=== PATIENT | female | born 1945 | race Caucasian/White ===

== ENCOUNTER 2016-11-06 10:28 | Outpatient (CLI) | payer MEDICARE, OTHER | END 2016-11-06 23:59 | DX: I10 Essential (primary) hypertension (principal); E78.5 Hyperlipidemia, unspecified; M10.00 Idiopathic gout, unspecified site ==

== ENCOUNTER 2016-12-07 10:06 | Outpatient (CLI) | payer MEDICARE, OTHER | END 2016-12-07 10:07 | disposition home or self-care (01) | DX: M85.88 Other specified disorders of bone density and structure, other site (principal) ==

== ENCOUNTER 2016-12-07 10:09 | Outpatient (CLI) | payer MEDICARE, OTHER | END 2016-12-07 10:10 | disposition home or self-care (01) | DX: Z12.31 Encounter for screening mammogram for malignant neoplasm of breast (principal); R92.8 Other abnormal and inconclusive findings on diagnostic imaging of breast ==

== ENCOUNTER 2016-12-21 12:44 | Outpatient (CLI) | payer MEDICARE, OTHER ==
--- NOTE | 2016-12-25 14:52 | Mammography Report ---
REVISED: THIS REPORT WAS ORIGINALLY SIGNED ON 12/25/2016 @ 1810. NO CHANGES MADE TO REPORT. ORIGINAL [facility] REQUISITION WAS REPRINTED ON 01/07/2017. DIGITAL SCREENING MAMMOGRAM: 11/30/2016 CLINICAL HISTORY: A 71-year-old female who had a small right breast mass on recent screening mammogram dated 12/07/2016. The patient returns today for additional views of the right breast and right breast ultrasound. TECHNIQUE: Coned down compression, craniocaudal and oblique lateral views of the right breast were obtained with Hologic field digital mammography. FINDINGS: Additional views of the right breast confirms the presence of an 0.5 cm in diameter relatively well- circumscribed mass in the 12 o'clock position, 5 cm superior and posterior to the right nipple. This mass was not definitely present on patient's preceding mammograms from 07/31/2014 or 12/24/2015. Recommend a right breast ultrasound for further evaluation. RIGHT BREAST ULTRASOUND: FINDINGS: Right breast ultrasound demonstrates an 0.5 cm by 0.3 cm oval-shaped well-circumscribed, hypoechoic mass in the 12 o'clock position 5 cm superior and posterior to the right nipple. This mass has the appearance suggestive of a benign fibroadenoma. Options for further workup include six month followup right breast ultrasound versus an ultrasound-guided biopsy. In discussion with the patient, she probably will decide to proceed with an ultrasound-guided biopsy of her right breast. She would like a definitive answer in regard to this mass especially since it was not present on preceding mammograms. IMPRESSION: AN 0.5 CM BY 0.03 CM OVAL-SHAPED HYPOECHOIC WELL-CIRCUMSCRIBED MASS IS NOTED IN THE 12 O'CLOCK POSITION OF THE RIGHT BREAST. 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 OPTIONS FOR FURTHER WORKUP ARE DISCUSSED ABOVE. BIRADS CATEGORY 3-PROBABLY BENIGN FINDINGS. AT THE VERY LEAST, SHORT TERM FOLLOWUP IMAGING STUDY IS RECOMMENDED FOR FURTHER EVALUATION. THE PATIENT, HOWEVER, MAY CHOOSE OTHER OPTIONS FOR FURTHER WORKUP (ULTRASOUND-GUIDED BIOPSY) . STANDARD QUALIFYING STATEMENTS 1. This examination was reviewed with the aid of Computer-Aided Detection (CAD). 2. A negative or benign imaging report should not delay biopsy if clinically suspicious findings are present. Consider surgical consultation if warranted. More than 5% of cancers are not identified by imaging. 3. Dense breasts may obscure an underlying neoplasm. MTDD
== END 2016-12-21 12:45 | disposition home or self-care (01) ==
LOC: DI 12:44
PROVIDERS: ATTEND Family Medicine
DX: N63 Unspecified lump in breast (principal)
CPT/HCPCS: 76642; G0206

== ENCOUNTER 2017-01-11 12:30 | Outpatient (CLI) | payer MEDICARE, OTHER ==
--- NOTE | 2017-01-11 15:03 | Ultrasound Report ---
ULTRASOUND-GUIDED CORE NEEDLE BIOPSY RIGHT BREAST: 01/11/2017 CLINICAL INDICATION: A 5-mm nodule right upper breast. FINDINGS: Informed consent was obtained. Using standard aseptic technique, both 1% buffered lidocai ne and Sensorcaine were injected into the right breast for local anesthesia. A small feng was made i n the skin with a #11 blade. A 12-gauge Celero vacuum-assisted device was used to obtain three speci mens. A Celero marker was placed into the biopsy cavity under ultrasound guidance. The patient was taken t o a separate mammography machine, and a two-view digital mammogram was performed, documenting the mar ker in the expected location and no significant post-biopsy hematoma. The wound was dressed and ice applied. The patient was observed for approximately 15 minutes, then w as discharged from [facility] in good condition following instructions on wound care and obta ining biopsy results. The tissue was sent for histologic analysis. IMPRESSION: ULTRASOUND-GUIDED BIOPSY OF THE RIGHT BREAST. An addendum will be made to this report when pathology is reviewed to establish concordance. JOB #: [id number] EXT JOB #:[id number]
[2017-01-11] MEDS ORDERED: BUFFERED LIDOCAINE 10 ML SYRINGE IU ONE (15:20)
[2017-01-11] MEDS ORDERED: BUPIVACAINE 0.5%-EPI 1:200000 PF 30 ML VIAL SUBQ ONE (15:20)
[2017-01-11 15:32] VITALS: BP 181/93
--- NOTE | 2017-01-27 15:41 | Mammography Report ---
EXAM: [id number] US/BX ([id number]) ULTRASOUND-GUIDED CORE NEEDLE BIOPSY RIGHT BREAST: 01/11/2017 CLINICAL INDICATION: A 5-mm nodule right upper breast. FINDINGS: Informed consent was obtained. Using standard aseptic technique, both 1% buffered lidocaine and Sensorcaine were injected into the right breast for local anesthesia. A small feng was made in the skin with a #11 blade. A 12 -gauge Celero vacuum-assisted device was used to obtain three specimens. A Celero marker was placed into the biopsy cavity under ultrasound guidance. The patient was taken to a separate mammography machine, and a two-view digital mammogram was performed, documenting the marker in the expected location and no significant post-biopsy hematoma. The wound was dressed and ice applied. The patient was observed for approximately 15 minutes, then was discharged from [facility] in good condition following instructions on wound care and obtaining biopsy results. The tissue was sent for histologic analysis. IMPRESSION: ULTRASOUND-GUIDED BIOPSY OF THE RIGHT BREAST. An addendum will be made to this report when pathology is reviewed to establish concordance. JOB #: [id number] EXT JOB #: [id number] Reimbursement Rep: Reading Radiologist: Grady Cisse MD Releasing Radiologist: Grady Cisse MD Released Date Time: 01/11/17 1521 <Electronically signed by Grady Cisse MD> cc: Jaswinder Adame DO ADDENDUM ADDENDUM: Procedure performed by Dr. Cisse. Pathology reviewed by Dr. Cisse. Final pathology results are benign, demonstrating a fibroadenoma without atypia. These results are concordant with the imaging findings. RECOMMENDATION: Followup six month diagnostic mammogram. The patient has been scheduled to obtain results from Dr. Adame on 01/15/2017 at 1500 hours. Addendum Reimbursement Rep: YUAN Addendum Reading Radiologist: Grady Cisse MD Addendum Releasing Radiologist: Grady Cisse MD Addendum Released Date Time: 01/14/17 0809 MTDD
== END 2017-01-11 12:31 | disposition home or self-care (01) ==
LOC: DI 12:30
PROVIDERS: ATTEND Family Medicine
DX: D24.1 Benign neoplasm of right breast (principal)
CPT/HCPCS: 19083; G0206; 88305

== ENCOUNTER 2017-08-11 08:31 | Outpatient (CLI) | payer MEDICARE, OTHER ==
--- NOTE | 2017-08-11 14:29 | Mammography Report ---
DATE OF SERVICE: 08/11/2017 DIGITAL DIAGNOSTIC RIGHT MAMMOGRAM: 08/11/2017 CLINICAL INDICATION: Followup benign right breast biopsy. COMPARISON: 12/2016, 11/2016, 12/2015, 07/2014, 11/2012, 12/2011, 09/2010, 09/2009. TECHNIQUE: Right CC, MLO, true lateral, laterally exaggerated CC views. FINDINGS: The right breast again demonstrate scattered fibroglandular densities. A few punctate, typically benign calcifications are present. Biopsy marker and previously biopsied nodule in the right central breast are stable. No suspicious masses, clustered microcalcifications, or regions of architectural distortion are identified. IMPRESSION: BENIGN FINDINGS. RECOMMENDATION: ROUTINE ANNUAL SCREENING, NEXT DUE IN NOVEMBER OF 2017, UNLESS OTHERWISE CLINICALLY INDICATED. BIRADS CATEGORY 2-BENIGN FINDINGS. STANDARD QUALIFYING STATEMENTS: 1. This examination was reviewed with the aid of Computer-Aided Detection (CAD). 2. A negative or benign imaging report should not delay biopsy if clinically suspicious findings are present. Consider surgical consultation if warranted. More than 5% of cancers are not identified by imaging. 3. Dense breasts may obscure an underlying neoplasm. TD: 08/11/2017 15:28
== END 2017-08-11 08:32 | disposition home or self-care (01) ==
LOC: DI 08:31
PROVIDERS: ATTEND Family Medicine
DX: R92.8 Other abnormal and inconclusive findings on diagnostic imaging of breast (principal)

== ENCOUNTER 2017-09-16 10:38 | Outpatient (CLI) | payer MEDICARE, OTHER ==
--- NOTE | 2017-09-16 14:27 | XRAY Report ---
THREE VIEW RIGHT KNEE: 09/16/2017 CLINICAL INDICATION: Osteoarthritis, effusion. FINDINGS: AP, lateral, sunrise views of the right knee demonstrate moderate osteoarthritis, worst in the patellofemoral compartment. Moderate effusion is present. There is no evidence of fracture or dislocation. IMPRESSION: MODERATE RIGHT KNEE OSTEOARTHRITIS, WITH A MODERATE EFFUSION. TD: 09/16/2017 14:26
--- NOTE | 2017-09-16 14:30 | XRAY Report ---
TWO VIEW LEFT KNEE: 09/16/2017 CLINICAL INDICATION: Osteoarthritis. FINDINGS: Frontal and lateral views of the left knee demonstrate moderate osteoarthritis, worst in the lateral femorotibial compartment. There is no evidence of acute fracture. No effusion is seen. IMPRESSION: MODERATE LEFT OSTEOARTHRITIS. TD: 09/16/2017 14:30
== END 2017-09-16 10:39 | disposition home or self-care (01) ==
LOC: DI 10:38
PROVIDERS: ATTEND Physician Assistant Medical
DX: M17.0 Bilateral primary osteoarthritis of knee (principal); M25.461 Effusion, right knee

== ENCOUNTER 2017-11-26 07:54 | Outpatient (CLI) | payer MEDICARE, OTHER ==
[2017-11-26 13:21] LABS: BASOPHILS % (AUTO) 0.9 %; EOSINOPHILS # (AUTO) 0.4 10^3/uL (0.0-0.7); EOSINOPHILS % (AUTO) 7.2 %; HGB - HEMOGLOBIN 13.5 g/dL (12.0-16.0); LYMPHOCYTES # (AUTO) 1.3 10^3/uL (1.5-3.5); LYMPHOCYTES % (AUTO) 26.2 %; MEAN CORPUSCULAR HEMOGLOBIN 33.7 pg (27.0-31.0); MEAN CORPUSCULAR HGB CONC 34.8 g/dL (32.0-36.0); MEAN CORPUSCULAR VOLUME 96.7 fL (81.0-99.0); MEAN PLATELET VOLUME 7.6 fL (7.9-10.8); MONOCYTES # (AUTO) 0.5 10^3/uL (0.0-1.0); NEUTROPHILS # (AUTO) 2.9 10^3/uL (1.5-6.6); NEUTROPHILS % (AUTO) 56.7 %; PLT - PLATELET COUNT 298 10^3/uL (130-450); RED BLOOD COUNT 4.01 10^6/uL (4.20-5.40); RED CELL DISTRIBUTION WIDTH 12.5 % (12.0-15.0); WHITE BLOOD COUNT 5.1 x10^3/uL (4.8-10.8)
[2017-11-26 13:28] LABS: ALBUMIN 4.3 g/dL (3.2-5.5); ALBUMIN/GLOBULIN RATIO 1.6 (1.0-2.2); ALKALINE PHOSPHATASE 67 IU/L (42-121); ALT ALANINE AMINOTRANSFERASE 22 IU/L (10-60); AST ASPARTATE AMINOTRANSFERASE 34 IU/L (10-42); BILIRUBIN,TOTAL 0.6 mg/dL (0.2-1.0); BUN - BLOOD UREA NITROGEN 11 mg/dL (6-20); CALCIUM 9.1 mg/dL (8.5-10.3); CARBON DIOXIDE - CO2 27 mmol/L (21-32); CHLORIDE 94 mmol/L (101-111); CHOLESTEROL 213 mg/dL; CREATININE 0.5 mg/dL (0.4-1.0); GFR - MDRD 122 (>89); GLUCOSE 95 mg/dL (70-100); HDL CHOLESTEROL 70 mg/dL; LDL CHOLESTEROL,CALCULATED 127 mg/dL; LDL/HDL RATIO 1.8 (<4.4); SODIUM 129 mmol/L (135-145); VLDL CHOLESTEROL 16 mg/dL
== END 2017-11-26 07:55 | disposition home or self-care (01) ==
LOC: LAB.WCP 07:54
PROVIDERS: ATTEND Family Medicine
DX: E78.5 Hyperlipidemia, unspecified (principal); I10 Essential (primary) hypertension
CPT/HCPCS: 36415; 80053; 80061; 83721; 85025

== ENCOUNTER 2017-12-15 08:00 | Outpatient (CLI) | payer MEDICARE, OTHER ==
[2017-12-15 13:14] LABS: CALCIUM 9.4 mg/dL (8.5-10.3); CREATININE 0.6 mg/dL (0.4-1.0)
== END 2017-12-15 08:01 | disposition home or self-care (01) ==
LOC: LAB.WCP 08:00
PROVIDERS: ATTEND Family Medicine
DX: I10 Essential (primary) hypertension (principal)
CPT/HCPCS: 36415; 80048

== ENCOUNTER 2017-12-22 08:28 | Outpatient (CLI) | payer MEDICARE, OTHER ==
--- NOTE | 2017-12-23 13:56 | Mammography Report ---
DIGITAL SCREENING MAMMOGRAM: 12/22/2017 CLINICAL INDICATION: A 72-year-old with history of benign right breast biopsy for screening. COMPARISON: 11/2016, 12/2015, 07/2014, 11/2012, 12/2011, 09/2010, 09/2009. TECHNIQUE: Routine CC and MLO projections were obtained of the breasts. FINDINGS: The breasts again demonstrate scattered fibroglandular densities bilaterally. Biopsy marker in the right central breast is stable. Coarse and punctate, typically benign calcifications are present. No suspicious masses, clustered microcalcifications, or regions of architectural distortion are identified. IMPRESSION: BENIGN FINDINGS. RECOMMENDATION: Routine annual screening unless otherwise clinically indicated. BI-RADS CATEGORY 2 - BENIGN FINDINGS. STANDARD QUALIFYING STATEMENTS: 1. This examination was reviewed with the aid of Computer-Aided Detection (CAD). 2. A negative or benign imaging report should not delay biopsy if clinically suspicious findings are present. Consider surgical consultation if warranted. More than 5% of cancers are not identified by imaging. 3. Dense breasts may obscure an underlying neoplasm. TD: 12/23/2017 13:45
== END 2017-12-22 08:29 | disposition home or self-care (01) ==
LOC: DI.N 08:28
PROVIDERS: ATTEND Family Medicine
DX: Z12.31 Encounter for screening mammogram for malignant neoplasm of breast (principal)
CPT/HCPCS: 77067

== ENCOUNTER 2017-12-29 08:29 | Outpatient (CLI) | payer MEDICARE, OTHER ==
[2017-12-29 12:50] LABS: BASOPHILS # (AUTO) 0.1 10^3/uL (0.0-0.1); BASOPHILS % (AUTO) 2.2 %; EOSINOPHILS # (AUTO) 0.4 10^3/uL (0.0-0.7); HGB - HEMOGLOBIN 13.8 g/dL (12.0-16.0); LYMPHOCYTES # (AUTO) 1.6 10^3/uL (1.5-3.5); LYMPHOCYTES % (AUTO) 33.4 %; MEAN CORPUSCULAR HEMOGLOBIN 33.3 pg (27.0-31.0); MEAN CORPUSCULAR HGB CONC 34.3 g/dL (32.0-36.0); MEAN PLATELET VOLUME 7.9 fL (7.9-10.8); MONOCYTES # (AUTO) 0.4 10^3/uL (0.0-1.0); MONOCYTES % (AUTO) 7.4 %; NEUTROPHILS # (AUTO) 2.4 10^3/uL (1.5-6.6); PLT - PLATELET COUNT 272 10^3/uL (130-450); RED BLOOD COUNT 4.14 10^6/uL (4.20-5.40); RED CELL DISTRIBUTION WIDTH 12.5 % (12.0-15.0); WHITE BLOOD COUNT 4.9 x10^3/uL (4.8-10.8)
[2017-12-29 13:26] LABS: ALBUMIN 4.6 g/dL (3.2-5.5); ALBUMIN/GLOBULIN RATIO 1.8 (1.0-2.2); ALKALINE PHOSPHATASE 63 IU/L (42-121); ALT ALANINE AMINOTRANSFERASE 24 IU/L (10-60); AST ASPARTATE AMINOTRANSFERASE 34 IU/L (10-42); BILIRUBIN,TOTAL 0.8 mg/dL (0.2-1.0); BUN - BLOOD UREA NITROGEN 9 mg/dL (6-20); CALCIUM 9.1 mg/dL (8.5-10.3); CARBON DIOXIDE - CO2 26 mmol/L (21-32); CHLORIDE 100 mmol/L (101-111); CHOL/HDL RATIO 2.9 (<4.4); CHOLESTEROL 226 mg/dL; CREATININE 0.6 mg/dL (0.4-1.0); GFR - MDRD 99 (>89); GLUCOSE 90 mg/dL (70-100); HDL CHOLESTEROL 79 mg/dL; LDL CHOLESTEROL,CALCULATED 126 mg/dL; LDL/HDL RATIO 1.6 (<4.4); SODIUM 135 mmol/L (135-145); TOTAL PROTEIN 7.2 g/dL (6.7-8.2); URIC ACID 4.8 mg/dL (2.6-7.2); VLDL CHOLESTEROL 21 mg/dL
== END 2017-12-29 08:30 ==
LOC: LAB.WCP 08:29
PROVIDERS: ATTEND Family Medicine
DX: I10 Essential (primary) hypertension (principal); E78.5 Hyperlipidemia, unspecified; M10.00 Idiopathic gout, unspecified site
CPT/HCPCS: 36415; 80053; 80061; 83721; 84550; 85025

== ENCOUNTER 2019-02-14 14:41 | Outpatient (CLI) | payer MEDICARE, OTHER ==
--- NOTE | 2019-02-15 08:55 | Mammography Report ---
Reason: SCREENING MAMMO Procedure Date: 02/14/2019 Accession Number: [id number] / [id number] Procedure: PRANEETH - Screening Mammo w/Luis A CPT Code: FULL RESULT: EXAM: Screening Mammo w/Luis A DATE: 02/14/2019 3:14 PM CLINICAL HISTORY: Screening encounter. History of right breast core biopsy in 2017 with benign pathology. TECHNIQUE: (B) - Bilateral CC and MLO views were obtained. COMPARISON: 12/22/2017 through 07/31/2014. PARENCHYMAL PATTERN: (A) - The breast(s) demonstrate(s) scattered fibroglandular densities. FINDINGS: A biopsy clip is seen in the right breast. There are no suspicious masses, calcifications, or areas of distortion. IMPRESSION: Benign findings. BI-RADS category 2. RECOMMENDATION: (ANNUAL) - Recommend routine annual screening mammography. BI-RADS CATEGORY: (2) - Benign Findings. STANDARD QUALIFYING STATEMENTS: 1. This examination was not reviewed with the aid of Computer-Aided Detection (CAD). 2. A negative or benign imaging report should not preclude biopsy if clinically suspicious findings are present. 3. Dense breasts may obscure an underlying neoplasm. 4. This examination was reviewed with the aid of 3D breast imaging (tomosynthesis).
== END 2019-02-14 14:42 | disposition home or self-care (01) ==
LOC: DI 14:41
DX: Z12.31 Encounter for screening mammogram for malignant neoplasm of breast (principal)
CPT/HCPCS: 77063; 77067

== ENCOUNTER 2019-02-14 14:44 | Outpatient (CLI) | payer MEDICARE, OTHER ==
--- NOTE | 2019-02-15 10:20 | DEXA Report ---
Reason: BONE DISORDER Procedure Date: 02/14/2019 Accession Number: [id number] / [id number] Procedure: DEX - Dexa Spine and/or Hip CPT Code: FULL RESULT: EXAM: Dexa Spine and/or Hip DATE: 02/14/2019 3:31 PM CLINICAL HISTORY: BONE DISORDER TECHNIQUE: Dual energy x-ray absorptiometry (DXA) was performed on a [employer] System. Regions measured are the AP Spine, femoral neck, and if needed forearm. COMPARISON: 12/07/2016. In accordance with the International Society for Clinical Densitometry (ISCD) guidelines, data from previous exams may be reanalyzed using current recommendations and techniques. This is done to allow a more accurate basis for comparison with the current study. FINDINGS: The data for the lumbar spine is as follows: BMD (g/cm/cm) T-SCORE Z-SCORE REGION L1 1.311 1.5 2.9 L2 1.418 1.8 3.2 L3 1.432 1.9 3.3 L4 1.772 4.8 6.2 TOTAL 1.505 2.7 4.1 NOTE: All evaluable vertebrae are used for classification The data for the hip is as follows: BMD (g/cm/cm) T-SCORE Z-SCORE REGION Neck 0.748 -2.1 -0.5 TOTAL 0.864 -1.1 0.2 NOTE: The femoral neck or total proximal femur, whichever is lowest, is used for classification. DXA RESULTS SUMMARY: Spine SCAN DATE AGE BMD CHANGE VS CHANGE VS PREVIOUS PREVIOUS % 3/14/2019 [age] 1.505 -0.004 -0.3 12/07/2016 [age] 1[age]509 * Denotes significant change at the 95% confidence level. Denotes dissimilar scan types or analysis methods. DXA RESULTS SUMMARY: Hip SCAN DATE AGE BMD CHANGE VS CHANGE VS PREVIOUS PREVIOUS % [birth year][age][birth year]2019 [age] 0.864 -0.052* -5.7* 12[age]07/2016 [age] 0[age]916 * Denotes significant change at the 95% confidence level. Denotes dissimilar scan types or analysis methods. IMPRESSION: THE WHO CLASSIFICATION BASED ON THE INTERNATIONAL REFERENCE STANDARD IS OSTEOPENIA. THE FRACTURE RISK IS INCREASED. RECOMMENDATION: Patients with diagnosis of osteoporosis or osteopenia should have regular bone mineral density assessment. For those eligible for Medicare, routine testing is allowed once every 2 years. Testing frequency can be increased for patients who have rapidly progressing disease or for those who are receiving medical therapy to restore bone mass. COMMENT: World Health Organization (WHO) definitions for osteoporosis and osteopenia: NORMAL BMD: T-score at -1.0 or higher, fracture risk is low OSTEOPENIA BMD: T-score between -1.0 and -2.5, fracture risk is increased. OSTEOPOROSIS BMD: T-score at -2.5 or lower, fracture risk is high. National Osteoporosis Foundation recommends: 1. Obtain adequate dietary calcium (at least 1200 mg per day) and vitamin D (400-800 international units per day). 2. Participate, as appropriate, in regular weightbearing and muscle-strengthening exercise. 3. Avoid tobacco use and reduce alcohol and caffeine intake. 4. For more detailed information see the website at www.NOF.org.
== END 2019-02-14 14:45 | disposition home or self-care (01) ==
LOC: DI 14:44
PROVIDERS: ATTEND Family Medicine
DX: M85.89 Other specified disorders of bone density and structure, multiple sites (principal)
CPT/HCPCS: 77080

== ENCOUNTER 2019-03-10 08:00 | Outpatient (CLI) | payer MEDICARE, OTHER ==
[2019-03-10 11:57] LABS: BASOPHILS # (AUTO) 0.1 10^3/uL (0.0-0.1); BASOPHILS % (AUTO) 1.6 %; EOSINOPHILS # (AUTO) 0.3 10^3/uL (0.0-0.7); EOSINOPHILS % (AUTO) 4.7 %; HGB - HEMOGLOBIN 13.6 g/dL (12.0-16.0); LYMPHOCYTES # (AUTO) 2.2 10^3/uL (1.5-3.5); LYMPHOCYTES % (AUTO) 39.1 %; MEAN CORPUSCULAR HEMOGLOBIN 32.5 pg (27.0-31.0); MEAN CORPUSCULAR HGB CONC 32.2 g/dL (32.0-36.0); MEAN CORPUSCULAR VOLUME 101.2 fL (81.0-99.0); MEAN PLATELET VOLUME 9.5 fL (7.9-10.8); MONOCYTES # (AUTO) 0.4 10^3/uL (0.0-1.0); MONOCYTES % (AUTO) 6.7 %; NEUTROPHILS # (AUTO) 2.7 10^3/uL (1.5-6.6); NEUTROPHILS % (AUTO) 47.5 %; PLT - PLATELET COUNT 287 10^3/uL (130-450); RED BLOOD COUNT 4.18 10^6/uL (4.20-5.40); RED CELL DISTRIBUTION WIDTH 12.8 % (12.0-15.0); WHITE BLOOD COUNT 5.7 x10^3/uL (4.8-10.8)
[2019-03-10 12:26] LABS: ALBUMIN 4.6 g/dL (3.2-5.5); ALBUMIN/GLOBULIN RATIO 1.6 (1.0-2.2); ALKALINE PHOSPHATASE 62 IU/L (42-121); ALT ALANINE AMINOTRANSFERASE 24 IU/L (10-60); AST ASPARTATE AMINOTRANSFERASE 31 IU/L (10-42); BILIRUBIN,TOTAL 0.8 mg/dL (0.2-1.0); BUN - BLOOD UREA NITROGEN 10 mg/dL (6-20); CALCIUM 9.5 mg/dL (8.5-10.3); CARBON DIOXIDE - CO2 26 mmol/L (21-32); CHLORIDE 99 mmol/L (101-111); CHOL/HDL RATIO 2.6 (<4.4); CHOLESTEROL 239 mg/dL; CREATININE 0.5 mg/dL (0.4-1.0); GFR - MDRD 121 (>89); GLUCOSE 86 mg/dL (70-100); HDL CHOLESTEROL 93 mg/dL; LDL CHOLESTEROL,CALCULATED 125 mg/dL; LDL/HDL RATIO 1.3 (<4.4); SODIUM 138 mmol/L (135-145); TOTAL PROTEIN 7.4 g/dL (6.7-8.2); VLDL CHOLESTEROL 21 mg/dL
== END 2019-03-10 23:59 | disposition home or self-care (01) ==
LOC: LAB.WCP 08:00
PROVIDERS: ATTEND Family Medicine
DX: I10 Essential (primary) hypertension (principal); E78.5 Hyperlipidemia, unspecified; F41.9 Anxiety disorder, unspecified
CPT/HCPCS: 36415; 80053; 80061; 83721; 84443; 85025

== ENCOUNTER 2020-06-19 10:00 | Outpatient (CLI) | payer MEDICARE, OTHER ==
--- NOTE | 2020-06-26 14:04 | Ultrasound Report ---
LIMITED ULTRASOUND OF LEFT BREAST: 06/19/2020 CLINICAL: Inverted left nipple. Comparison is made to exams dated: 06/19/2020 mammogram, 02/14/2019 mammogram, 12/22/2017 mammogram, mammogram, 01/11/2017 mammogram, and 01/11/2017 ultrasound biopsy - [facility]. Ultrasound of the left breast retroareolar was performed. Normal breast tissue is seen without evide nce of solid or cystic mass. IMPRESSION: PROBABLY BENIGN There is no mammographic or sonographic evidence of malignancy. Given new nipple inversion, recommen d clinical followup and US and Mammogram in 6 months. A follow-up mammogram and an ultrasound in 6 months is recommended to demonstrate stability. This exam was interpreted at Station ID: [id number]. Electronically Signed By: River Hikcs acr/:06/25/2020 15:57:54 Ultrasound BI-RADS: 3 Probably benign BI-RADS CATEGORY: (3) - 3 Mammo and US [id number] 6 month follow-up LATERALITY: (B)
--- NOTE | 2020-06-26 14:04 | Mammography Report ---
BILATERAL DIGITAL DIAGNOSTIC MAMMOGRAM 3D/2D: 06/19/2020 CLINICAL: Inverted left nipple. Comparison is made to exams dated: 02/14/2019 mammogram, 12/22/2017 mammogram, 08/11/2017 mammogram, 07/2017 mammogram, and 01/11/2017 ultrasound biopsy - [facility]. There are scatter ed fibroglandular elements in both breasts. No significant masses, calcifications, or other findings are seen in either breast. IMPRESSION: INCOMPLETE: NEEDS ADDITIONAL IMAGING EVALUATION No mammographic evidence of malignancy. Given history of inverted nipple recommend left breast US. BI-RADS 0. This exam was interpreted at Station ID: [id number]. NOTE: For mammograms, a report in lay terms will be sent to the patient. Approximately 15% of breast malignancies will not be visualized mammographically. In the management of a palpable breast mass, a negative mammogram must not discourage biopsy of a clinically suspicious lesion. Electronically Signed By: River Hicks acr/:06/25/2020 15:55:53 ACR BI-RADS Category 0: Incomplete 3340F PARENCHYMAL PATTERN: (A) - The breast(s) demonstrate(s) scattered fibroglandular densities. BI-RADS CATEGORY: (0) - 0 Ultrasound [id number] Immediate follow-up LATERALITY: (B)
== END 2020-06-19 10:01 | disposition home or self-care (01) ==
LOC: DI 10:00
PROVIDERS: ATTEND Family Medicine
DX: N64.59 Other signs and symptoms in breast (principal)
CPT/HCPCS: 76642; 77066

== ENCOUNTER 2020-10-04 11:12 | Outpatient (CLI) | payer MEDICARE, OTHER ==
[2020-10-04 12:02] VITALS: BP 155/96
--- NOTE | 2020-10-04 12:02 | SLEEP CARE CONSULTATION ---
Information from patient questionnaire entered by Veronika Melo. I have reviewed and concur with the information entered by Veronika Melo. This document represents the service I personally performed and the decisions made by me, Irina Arreguin ARNP. History of Present Illness Service Date and Time: 10/04/2020 1112 Reason for Visit: New patient Chief Complaint: reports: Fatigue (began after 01/07/20 when hospitalized for high blood pressure). denies: Unrefreshed sleep, Snoring, Observed pauses in breathing, Frequent awakenings at night Usual bedtime: 10:30-11 pm Time it takes to fall asleep: 15 minutes Snores at night: No Observed to quit breathing while asleep: No Sleeps alone due to snoring: No Number of times waking at night: 1 Reasons for waking at night: reports: Bathroom. denies: Choking, Snoring, Gasping for air Toss, Turn, or Twitch while sleeping: No Recalls having dreams: Yes Usually gets out of bed at: 6-7 am Feels refreshed in the morning: Yes Morning headache: No Sleepy or fatigued during the day: No Ever fallen asleep while driving: No Takes day naps: No Dreams during day naps: No Prior sleep studies: No Additional HPI information: I had the pleasure of seeing HERNAN HOLGUIN today regarding the possibility of her having a sleep disorder. Her current complaints include fatigue. She was hospitalized on 04/08/20 overnight for high blood pressure and found to have a rapid heart rate. She was originally started on 10 mg Amlodipine. She was feeling very tired and they stopped the Amlodipine. She was placed on Toprol 25 mg for her blood pressure. She followed up with Dr. Adame and discussed that she was having extreme fatigue issues and she was referred for a sleep evaluation. She followed up again with some rising blood pressure and was placed on Amlodipine 5 mg by the horticulture worker. Since these changes, she has been feeling fine and she has been checking her blood pressure at home and it has been 120s/60-70s. She does not snore or have any pauses in breathing. She does not gasp or choke in her sleep or have morning headaches. She usually wakes up feeling rested. She states the fatigue has since resolved. She is feeling like her old self and able to do her normal activities without fatigue or daytime sleepiness. - Parasomnia Symptoms Ever been unable to move upon waking from sleep: No Walks in sleep: No Talks in sleep: No Ever acted out dreams in sleep: No Ever felt weak in the knees when startled or emotional: No Bothered by creepy, crawly, restless sensations in legs: No Problems with memory or concentration: No Subjective Initial [place] Sleepiness Scale score: 2 (in 2020) Past Medical History Past Medical History: reports: Hypertension, Arthritis, Other (high cholesterol (200)) Social History The patient's occupation is a Retired. Patient is and lives in [place]. Have you smoked in the past 12 months: No Alcohol use: Yes Alcohol amount and frequency: 1-2 drinks daily Caffeine use: Yes Caffeine amount and frequency: 1 cup daily Family History Family history of sleep disordered breathing: No Allergies and Home Medications Drug allergies reviewed: Yes (codiene) Home medication list reviewed: Yes Allergy and home medication list: Toprol 25 mg Amlodipine 5 mg Lisinopril 40 mg Rosuvastatin 10 mg Lantanoprost eye drops Metronidazole cream 0.75% Centrum Silver Ubiquinol D3 25 mcg Aspirin 81 mg once a week Metamucil 2 tabs Cranberry gel tab daily Review of Systems Weight loss over past 5 years: 20 Cardiovascular: reports: high blood pressure Gastrointestinal: denies: heartburn Neurological: denies: headaches Psychiatric: reports: anxiety (lets things bother her). denies: depression Ear/Nose/Throat: reports: tonsillectomy, wisdom teeth removed (1). denies: nasal congestion Musculoskeletal: reports: joint pain Immunologic: denies: allergies to food or environment Physical Exam Blood Pressure: 155/96 (has white coat) Cuff size: regular Heart Rate: 80 O2 Saturation: 98 Height: 5 ft 9 in Weight: 161 lb Body Mass Index: 23.8 BMI Classification: Healthy weight Neck circumference: 14.3 (inches) Nostrils: patent to airflow Mouth and throat: narrow oropharynx Soft palate: long Hard palate: normal Uvula: normal Uvula visualization: 25% Mallampati Class III Tongue: enlarged in size with teeth enriquez on lateral edges Tonsils: absent bilaterally Chin and jaw: normal size and position Neck: normal w/o lymphadenopathy or thyromegaly Heart: regular rate and rhythm Lungs: clear bilaterally Impression and Plan 1. Fatigue, unspecified. She states her fatigue has resolved. She does not have loud and frequent snoring, observed pauses in breathing, unrefreshed sleep or excessive daytime sleepiness. She does have hypertension that is being well controlled by medications. Although, due to her white coat syndrome, her blood pressure was elevated today. I discussed with patient she does not have a typical presentation for sleep disordered breathing and risk factors are low. She is at a healthy weight. Patient voiced that she does not think her fatigue that developed solely after starting a large dose of Amlodipine and resolved with Toprol and lower dose of Amlodipine. I offered to send for authorization to see if we can do a study with her current symptoms but patient declined at this time. I feel her risks are low and agree at this time. I advised her to obtain referral to return if her symptoms reoccur or worsen. She voiced understanding. * Maintain a healthy weight * Avoid alcohol consumption near bedtime * Return as needed. Counseling Topics: Weight loss health impact Visit Type: In Office Time Spent with Patient (minutes): 30 Provider Statement: I spent 100% of the Face to Face Visit with the patient with greater than 50% spent counseling the patient and coordination of care.
== END 2020-10-04 11:13 | disposition home or self-care (01) ==
LOC: SC 11:12
PROVIDERS: ATTEND Nurse Practitioner Family
DX: R53.83 Other fatigue (principal); I10 Essential (primary) hypertension
CPT/HCPCS: 99203; G0463; 99212

== ENCOUNTER 2020-10-15 08:00 | Outpatient (CLI) | payer MEDICARE, OTHER ==
[2020-10-15 12:13] LABS: ALBUMIN 4.8 g/dL (3.2-5.5); ALBUMIN/GLOBULIN RATIO 1.8 (1.0-2.2); BILIRUBIN,TOTAL 0.6 mg/dL (0.2-1.0); CALCIUM 9.6 mg/dL (8.5-10.3); CREATININE 0.7 mg/dL (0.4-1.0); TOTAL PROTEIN 7.4 g/dL (6.7-8.2)
[2020-10-15 12:14] LABS: BASOPHILS # (AUTO) 0.1 10^3/uL (0.0-0.1); BASOPHILS % (AUTO) 1.6 %; EOSINOPHILS # (AUTO) 0.4 10^3/uL (0.0-0.7); EOSINOPHILS % (AUTO) 6.7 %; HGB - HEMOGLOBIN 14.4 g/dL (12.0-16.0); LYMPHOCYTES # (AUTO) 2.4 10^3/uL (1.5-3.5); LYMPHOCYTES % (AUTO) 37.6 %; MEAN CORPUSCULAR HEMOGLOBIN 33.1 pg (27.0-31.0); MEAN CORPUSCULAR HGB CONC 32.7 g/dL (32.0-36.0); MEAN CORPUSCULAR VOLUME 101.1 fL (81.0-99.0); MEAN PLATELET VOLUME 9.8 fL (7.9-10.8); MONOCYTES # (AUTO) 0.4 10^3/uL (0.0-1.0); MONOCYTES % (AUTO) 6.2 %; NEUTROPHILS % (AUTO) 47.6 %; PLT - PLATELET COUNT 311 10^3/uL (130-450); RED BLOOD COUNT 4.35 10^6/uL (4.20-5.40); RED CELL DISTRIBUTION WIDTH 12.4 % (12.0-15.0); WHITE BLOOD COUNT 6.3 x10^3/uL (4.8-10.8)
[2020-10-15 12:27] LABS: THYROID STIMULATING HORMONE 2.71 uIU/mL (0.34-5.60)
[2020-10-15 12:38] LABS: CHOL/HDL RATIO 2.3 (<4.4); CHOLESTEROL 214 mg/dL; HDL CHOLESTEROL 93 mg/dL; LDL CHOLESTEROL,CALCULATED 99 mg/dL; LDL/HDL RATIO 1.1 (<4.4); TRIGLYCERIDES 111 mg/dL; VLDL CHOLESTEROL 22 mg/dL
== END 2020-10-15 23:59 | disposition home or self-care (01) ==
LOC: LAB.WCP 08:00
PROVIDERS: ATTEND Family Medicine
DX: I10 Essential (primary) hypertension (principal); R53.83 Other fatigue; E78.5 Hyperlipidemia, unspecified
CPT/HCPCS: 36415; 80053; 80061; 83721; 84443; 85025

== ENCOUNTER 2020-12-17 08:00 | Outpatient (CLI) | payer MEDICARE, OTHER ==
[2020-12-17 17:41] LABS: BASOPHILS # (AUTO) 0.1 10^3/uL (0.0-0.1); BASOPHILS % (AUTO) 0.5 %; EOSINOPHILS % (AUTO) 0.3 %; HGB - HEMOGLOBIN 13.7 g/dL (12.0-16.0); LYMPHOCYTES # (AUTO) 0.9 10^3/uL (1.5-3.5); LYMPHOCYTES % (AUTO) 6.3 %; MEAN CORPUSCULAR HEMOGLOBIN 33.9 pg (27.0-31.0); MEAN CORPUSCULAR HGB CONC 33.4 g/dL (32.0-36.0); MEAN CORPUSCULAR VOLUME 101.5 fL (81.0-99.0); MEAN PLATELET VOLUME 9.6 fL (7.9-10.8); MONOCYTES # (AUTO) 1.1 10^3/uL (0.0-1.0); MONOCYTES % (AUTO) 7.9 %; NEUTROPHILS # (AUTO) 11.5 10^3/uL (1.5-6.6); NEUTROPHILS % (AUTO) 84.4 %; PLT - PLATELET COUNT 287 10^3/uL (130-450); RED BLOOD COUNT 4.04 10^6/uL (4.20-5.40); RED CELL DISTRIBUTION WIDTH 12.9 % (12.0-15.0); WHITE BLOOD COUNT 13.6 x10^3/uL (4.8-10.8)
[2020-12-17 18:02] LABS: ALBUMIN 4.7 g/dL (3.2-5.5); BILIRUBIN,TOTAL 1.1 mg/dL (0.2-1.0); CALCIUM 9.6 mg/dL (8.5-10.3); CREATININE 0.6 mg/dL (0.4-1.0); POTASSIUM 4.4 mmol/L (3.5-5.0); TOTAL PROTEIN 7.1 g/dL (6.7-8.2)
== END 2020-12-17 23:59 | disposition home or self-care (01) ==
LOC: LAB.N 08:00
PROVIDERS: ATTEND Physician Assistant Medical
DX: R10.9 Unspecified abdominal pain (principal)
CPT/HCPCS: 36415; 80053; 83690; 85025

== ENCOUNTER 2021-01-20 11:17 | Outpatient (CLI) | payer MEDICARE, OTHER ==
--- NOTE | 2021-01-21 14:25 | Mammography Report ---
UNILATERAL LEFT DIGITAL DIAGNOSTIC MAMMOGRAM 3D/2D: 01/20/2021 CLINICAL: Patient returns for a 6 month follow up of the left breast. Comparison is made to exams dated: 06/19/2020 ultrasound, 06/19/2020 mammogram, 02/14/2019 mammogram, 12/22/2017 mammogram, 08/11/2017 mammogram, and 01/11/2017 mammogram - [facility]. T here are scattered fibroglandular elements in left breast. No significant masses, calcifications, or other findings are seen in the breast. IMPRESSION: INCOMPLETE: NEEDS ADDITIONAL IMAGING EVALUATION There is no abnormality seen in the left breast to correspond with the nipple abnormality in the sub- areolar depth, however, ultrasound is recommended. Ultrasound will be performed immediately following the current exam. This exam was interpreted at Station ID: [id number]. NOTE: For mammograms, a report in lay terms will be sent to the patient. Approximately 15% of breast malignancies will not be visualized mammographically. In the management of a palpable breast mass, a negative mammogram must not discourage biopsy of a clinically suspicious lesion. Electronically Signed By: Luis Brooks M.D. ddp/:01/20/2021 12:48:32 ACR BI-RADS Category 0: Incomplete 3340F PARENCHYMAL PATTERN: (A) - The breast(s) demonstrate(s) scattered fibroglandular densities. BI-RADS CATEGORY: (0) - 0 Ultrasound [id number] Immediate follow-up LATERALITY: (B)
--- NOTE | 2021-01-21 14:25 | Ultrasound Report ---
LIMITED ULTRASOUND OF LEFT BREAST: 01/20/2021 CLINICAL: Patient returns today to evaluate a focal asymmetry in the left breast. Comparison is made to exams dated: 01/20/2021 mammogram, 06/19/2020 ultrasound, 06/19/2020 mammogram, 02/14/2019 mammogram, 12/22/2017 mammogram, and 08/11/2017 mammogram - [facility]. Color flow ultrasound of the left breast retroareolar was performed on the areas of interest. Jo scale images of the real-time examination were reviewed. No discrete cystic or solid mass lesion identified in the retroareolar region. IMPRESSION: NEGATIVE There is no sonographic evidence of malignancy. There is no abnormality seen in the left breast to correspond with the nipple inversion in the sub-ar eolar depth, however, clinical followup is recommended. Return to annual mammogram screening schedule is recommended. This exam was interpreted at Station ID: [id number]. Electronically Signed By: Luis Brooks M.D. ddp/:01/20/2021 12:50:55 Ultrasound BI-RADS: 1 Negative BI-RADS CATEGORY: (1) - 1 RECOMMENDATION: (ANNUAL) - Recommend routine annual screening mammography. [id number] return to screening LATERALITY: (B)
== END 2021-01-20 11:18 | disposition home or self-care (01) ==
LOC: DI 11:17
PROVIDERS: ATTEND Family Medicine
DX: R92.8 Other abnormal and inconclusive findings on diagnostic imaging of breast (principal)

== ENCOUNTER 2021-08-27 07:31 | Outpatient (CLI) | payer MEDICARE, OTHER ==
[2021-08-27 11:59] LABS: BASOPHILS # (AUTO) 0.1 10^3/uL (0.0-0.1); BASOPHILS % (AUTO) 2.2 %; EOSINOPHILS # (AUTO) 0.4 10^3/uL (0.0-0.7); EOSINOPHILS % (AUTO) 7.1 %; HCT - HEMATOCRIT 42.6 % (37.0-47.0); HGB - HEMOGLOBIN 14.3 g/dL (12.0-16.0); LYMPHOCYTES # (AUTO) 1.5 10^3/uL (1.5-3.5); LYMPHOCYTES % (AUTO) 29.7 %; MEAN CORPUSCULAR HEMOGLOBIN 33.9 pg (27.0-31.0); MEAN CORPUSCULAR HGB CONC 33.6 g/dL (32.0-36.0); MEAN CORPUSCULAR VOLUME 100.9 fL (81.0-99.0); MEAN PLATELET VOLUME 9.7 fL (7.9-10.8); MONOCYTES # (AUTO) 0.4 10^3/uL (0.0-1.0); MONOCYTES % (AUTO) 7.5 %; NEUTROPHILS # (AUTO) 2.7 10^3/uL (1.5-6.6); NEUTROPHILS % (AUTO) 53.3 %; PLT - PLATELET COUNT 244 10^3/uL (130-450); RED BLOOD COUNT 4.22 10^6/uL (4.20-5.40); RED CELL DISTRIBUTION WIDTH 12.5 % (12.0-15.0); WHITE BLOOD COUNT 5.1 x10^3/uL (4.8-10.8)
[2021-08-27 12:13] LABS: ALBUMIN 4.6 g/dL (3.2-5.5); ALBUMIN/GLOBULIN RATIO 1.9 (1.0-2.2); ALKALINE PHOSPHATASE 69 IU/L (42-121); ALT ALANINE AMINOTRANSFERASE 86 IU/L (10-60); AST ASPARTATE AMINOTRANSFERASE 128 IU/L (10-42); BILIRUBIN,TOTAL 0.9 mg/dL (0.2-1.0); BUN - BLOOD UREA NITROGEN 12 mg/dL (6-20); CARBON DIOXIDE - CO2 26 mmol/L (21-32); CHLORIDE 97 mmol/L (101-111); CHOL/HDL RATIO 2.1 (<4.4); CHOLESTEROL 221 mg/dL; CREATININE 0.5 mg/dL (0.4-1.0); GFR - MDRD 120 (>89); GLUCOSE 109 mg/dL (70-100); HDL CHOLESTEROL 105 mg/dL; LDL CHOLESTEROL,CALCULATED 103 mg/dL; POTASSIUM 4.3 mmol/L (3.5-5.0); SODIUM 133 mmol/L (135-145); TRIGLYCERIDES 64 mg/dL; URIC ACID 4.4 mg/dL (2.6-7.2); VLDL CHOLESTEROL 13 mg/dL
== END 2021-08-27 07:32 | disposition home or self-care (01) ==
LOC: LAB.N 07:31
PROVIDERS: ATTEND Family Medicine
DX: I16.0 Hypertensive urgency (principal); E78.5 Hyperlipidemia, unspecified; M10.9 Gout, unspecified
CPT/HCPCS: 36415; 80053; 80061; 83721; 84550; 85025

== ENCOUNTER 2021-09-18 08:00 | Outpatient (CLI) | payer MEDICARE, OTHER ==
[2021-09-18 18:08] LABS: FECAL OCCULT BLOOD (FIT) POSITIVE (NEGATIVE)
== END 2021-09-18 23:59 | disposition home or self-care (01) ==
LOC: LAB.N 08:00
PROVIDERS: ATTEND Family Medicine
DX: Z12.11 Encounter for screening for malignant neoplasm of colon (principal)
CPT/HCPCS: 82274

== ENCOUNTER 2021-09-22 09:39 | Outpatient (CLI) | payer MEDICARE, OTHER ==
--- NOTE | 2021-09-22 10:22 | DEXA Report ---
PROCEDURE: Dexa Spine and/or Hip INDICATIONS: BONE DISORDER TECHNIQUE: Dual energy x-ray absorptiometry (DXA) was performed on a Fonemesh System. Regions measur ed are the AP Spine, femoral neck, and if needed forearm. COMPARISON: Prior studies dating back to December 07, 2016 FINDINGS: Lumbar Spine: Bone Mineral Density 1.368 g/cm/cm,T score 1.6, normal Left Femoral Neck: Bone Mineral Density 0.736 g/cm/cm, T score -2.2, osteopenia Total: Bone Mineral Density 0.772 g/cm/cm, T score -1.9, osteopenia. (T score greater or equal to -1.0: NORMAL) (T score from -1.1 to -2.4: OSTEOPENIA) (T score less than or equal to -2.5 to: OSTEOPOROSIS) Impression: Bone mineral density as detailed above. Patients with diagnosis of osteoporosis or osteopenia should have regular bone mineral density assess ment. For those eligible for Medicare, routine testing is allowed once every 2 years. Testing frequ ency can be increased for patients who have rapidly progressing disease or for those who are receivin g medical therapy to restore bone mass. Reviewed by: Sid Hansen MD on 09/22/2021 10:21 AM PST Approved by: Sid Hansen MD on 09/22/2021 10:21 AM PST Station ID: [id number]
== END 2021-09-22 09:40 | disposition home or self-care (01) ==
LOC: DI 09:39
PROVIDERS: ATTEND Family Medicine
DX: M85.89 Other specified disorders of bone density and structure, multiple sites (principal)

== ENCOUNTER 2021-12-11 07:24 | Outpatient (CLI) | payer MEDICARE, OTHER ==
[2021-12-11 12:13] LABS: BASOPHILS # (AUTO) 0.1 10^3/uL (0.0-0.1); BASOPHILS % (AUTO) 2.4 %; EOSINOPHILS # (AUTO) 0.4 10^3/uL (0.0-0.7); EOSINOPHILS % (AUTO) 7.1 %; HCT - HEMATOCRIT 41.4 % (37.0-47.0); HGB - HEMOGLOBIN 13.8 g/dL (12.0-16.0); LYMPHOCYTES # (AUTO) 1.7 10^3/uL (1.5-3.5); LYMPHOCYTES % (AUTO) 32.7 %; MEAN CORPUSCULAR HEMOGLOBIN 33.3 pg (27.0-31.0); MEAN CORPUSCULAR HGB CONC 33.3 g/dL (32.0-36.0); MEAN PLATELET VOLUME 9.6 fL (7.9-10.8); MONOCYTES # (AUTO) 0.5 10^3/uL (0.0-1.0); NEUTROPHILS # (AUTO) 2.4 10^3/uL (1.5-6.6); NEUTROPHILS % (AUTO) 47.6 %; PLT - PLATELET COUNT 278 10^3/uL (130-450); RED BLOOD COUNT 4.14 10^6/uL (4.20-5.40); RED CELL DISTRIBUTION WIDTH 12.4 % (12.0-15.0); WHITE BLOOD COUNT 5.1 x10^3/uL (4.8-10.8)
[2021-12-11 12:33] LABS: ALBUMIN 4.5 g/dL (3.2-5.5); ALBUMIN/GLOBULIN RATIO 1.8 (1.0-2.2); ALKALINE PHOSPHATASE 58 IU/L (42-121); ALT ALANINE AMINOTRANSFERASE 42 IU/L (10-60); AST ASPARTATE AMINOTRANSFERASE 65 IU/L (10-42); BILIRUBIN,TOTAL 0.8 mg/dL (0.2-1.0); BUN - BLOOD UREA NITROGEN 9 mg/dL (6-20); CALCIUM 9.5 mg/dL (8.5-10.3); CARBON DIOXIDE - CO2 27 mmol/L (21-32); CHLORIDE 100 mmol/L (101-111); CHOL/HDL RATIO 2.2 (<4.4); CHOLESTEROL 226 mg/dL; CREATININE 0.6 mg/dL (0.4-1.0); GAMMA GLUTAMYL TRANSPEPTIDASE 25 IU/L (8-38); GFR - MDRD 97 (>89); GLUCOSE 108 mg/dL (70-100); HDL CHOLESTEROL 104 mg/dL; LDL CHOLESTEROL,CALCULATED 110 mg/dL; LDL/HDL RATIO 1.1 (<4.4); SODIUM 135 mmol/L (135-145); TRIGLYCERIDES 59 mg/dL; VLDL CHOLESTEROL 12 mg/dL
== END 2021-12-11 07:25 | disposition home or self-care (01) ==
LOC: LAB.N 07:24
PROVIDERS: ATTEND Family Medicine
DX: E78.5 Hyperlipidemia, unspecified (principal); I10 Essential (primary) hypertension; R94.5 Abnormal results of liver function studies
CPT/HCPCS: 36415; 80053; 80061; 82977; 83721; 85025

== ENCOUNTER 2022-07-08 13:02 | Outpatient (CLI) | payer MEDICARE, OTHER ==
--- NOTE | 2022-07-09 09:48 | Mammography Report ---
BILATERAL DIGITAL SCREENING MAMMOGRAM 3D/2D: 07/08/2022 CLINICAL: Routine screening. Comparison is made to exams dated: 01/20/2021 ultrasound, 01/20/2021 mammogram, 06/19/2020 ultrasound, 06/19/2020 mammogram, 02/14/2019 mammogram, and 12/22/2017 mammogram - [facility]. There are scattered areas of fibroglandular density in both breasts (category b / 25%-50% glandular t issue). No significant masses, calcifications, or other findings are seen in either breast. There has been no significant interval change. IMPRESSION: NEGATIVE There is no mammographic evidence of malignancy. A 1 year screening mammogram is recommended. Based on the Tyrer Cuzick model (a risk assessment model) the patients lifetime risk is 4.0% and her 10 year risk is 0.0%. According to the ACR, ACS, and NCCN guidelines, an annual breast MRI exam ashley g with mammogram is recommended if the patients lifetime risk is 20% or greater. This exam was interpreted at Station ID: [id number]. NOTE: For mammograms, a report in lay terms will be sent to the patient. Approximately 15% of breast malignancies will not be visualized mammographically. In the management of a palpable breast mass, a negative mammogram must not discourage biopsy of a clinically suspicious lesion. Electronically Signed By: Corine robertson/bette:07/08/2022 17:20:27 ACR BI-RADS Category 1: Negative 3341F PARENCHYMAL PATTERN: (A) - The breast(s) demonstrate(s) scattered fibroglandular densities. BI-RADS CATEGORY: (1) - 1 RECOMMENDATION: (ANNUAL) - Recommend routine annual screening mammography. [id number] 1 year screening LATERALITY: (B)
== END 2022-07-08 13:03 | disposition home or self-care (01) ==
LOC: DI.N 13:02
DX: Z12.31 Encounter for screening mammogram for malignant neoplasm of breast (principal)

== ENCOUNTER 2022-12-02 07:30 | Outpatient (CLI) | payer MEDICARE, OTHER ==
[2022-12-02 12:23] LABS: BASOPHILS # (AUTO) 0.1 10^3/uL (0.0-0.1); BASOPHILS % (AUTO) 1.7 %; EOSINOPHILS # (AUTO) 0.4 10^3/uL (0.0-0.7); EOSINOPHILS % (AUTO) 6.4 %; HCT - HEMATOCRIT 41.5 % (37.0-47.0); HGB - HEMOGLOBIN 13.7 g/dL (12.0-16.0); LYMPHOCYTES # (AUTO) 1.7 10^3/uL (1.5-3.5); MEAN CORPUSCULAR HEMOGLOBIN 33.1 pg (27.0-31.0); MEAN CORPUSCULAR VOLUME 100.2 fL (81.0-99.0); MEAN PLATELET VOLUME 9.8 fL (7.9-10.8); MONOCYTES # (AUTO) 0.5 10^3/uL (0.0-1.0); MONOCYTES % (AUTO) 8.7 %; NEUTROPHILS # (AUTO) 3.1 10^3/uL (1.5-6.6); PLT - PLATELET COUNT 288 10^3/uL (130-450); RED BLOOD COUNT 4.14 10^6/uL (4.20-5.40); RED CELL DISTRIBUTION WIDTH 12.5 % (12.0-15.0); WHITE BLOOD COUNT 5.8 x10^3/uL (4.8-10.8)
[2022-12-02 12:31] LABS: ALBUMIN 4.6 g/dL (3.2-5.5); ALBUMIN/GLOBULIN RATIO 1.8 (1.0-2.2); ALKALINE PHOSPHATASE 65 IU/L (42-121); ALT ALANINE AMINOTRANSFERASE 28 IU/L (10-60); AST ASPARTATE AMINOTRANSFERASE 39 IU/L (10-42); BILIRUBIN,TOTAL 0.6 mg/dL (0.2-1.0); BUN - BLOOD UREA NITROGEN 10 mg/dL (6-20); CALCIUM 9.4 mg/dL (8.5-10.3); CARBON DIOXIDE - CO2 28 mmol/L (21-32); CHLORIDE 103 mmol/L (101-111); CHOLESTEROL 208 mg/dL; CREATININE 0.6 mg/dL (0.4-1.0); GFR - MDRD 97 (>89); GLUCOSE 109 mg/dL (70-100); HDL CHOLESTEROL 102 mg/dL; LDL CHOLESTEROL,CALCULATED 95 mg/dL; LDL/HDL RATIO 0.9 (<4.4); POTASSIUM 4.2 mmol/L (3.5-5.0); SODIUM 139 mmol/L (135-145); TOTAL PROTEIN 7.1 g/dL (6.7-8.2); TRIGLYCERIDES 53 mg/dL; VLDL CHOLESTEROL 11 mg/dL
== END 2022-12-02 07:31 | disposition home or self-care (01) ==
LOC: LAB.N 07:30
PROVIDERS: ATTEND Physician Assistant
DX: I10 Essential (primary) hypertension (principal); E78.5 Hyperlipidemia, unspecified
CPT/HCPCS: 36415; 80053; 80061; 83721; 85025

== ENCOUNTER 2022-12-08 10:37 | Outpatient (CLI) | payer MEDICARE, OTHER | END 2022-12-08 10:38 | disposition home or self-care (01) | LOC: DI.N 10:37 | PROVIDERS: ATTEND Physician Assistant | DX: Z53.9 Procedure and treatment not carried out, unspecified reason (principal) ==

== ENCOUNTER 2022-12-08 10:58 | Outpatient (CLI) | payer MEDICARE, OTHER ==
--- NOTE | 2022-12-08 16:45 | XRAY Report ---
PROCEDURE: Hand 3 View LT INDICATIONS: HAND PAIN LEFT. TECHNIQUE: 3 views of the hand(s) acquired. COMPARISON: None. FINDINGS: Bones: Ulnar negative variance is seen. Diffuse osteopenia is seen. Osteoarthritic changes are noted throughout left hand and wrist joints. No fractures or dislocations. No gross bony erosive changes. No suspicious bony lesions. Soft tissues: No suspicious soft tissue calcifications or masses. IMPRESSION: [id number] left hand and wrist joint osteoarthritis. No fracture or dislocation. No gross bony erosive changes. Osteopenia. Ulnar negative variance. Reviewed by: Genaro Morse MD on 12/08/2022 4:43 PM PDT Approved by: Genaro Morse MD on 12/08/2022 4:43 PM PDT Station ID: [id number]
== END 2022-12-08 23:59 | disposition home or self-care (01) ==
LOC: DI.N 10:58
PROVIDERS: ATTEND Physician Assistant
DX: M19.042 Primary osteoarthritis, left hand (principal)

== ENCOUNTER 2024-04-24 07:17 | Outpatient (CLI) | payer MEDICARE, OTHER ==
[2024-04-24 12:17] LABS: HCT - HEMATOCRIT 42.1 % (37.0-47.0); MEAN CORPUSCULAR HGB CONC 33.3 g/dL (32.0-36.0); MEAN CORPUSCULAR VOLUME 102.2 fL (81.0-99.0); MEAN PLATELET VOLUME 9.6 fL (7.9-10.8); RED BLOOD COUNT 4.12 10^6/uL (4.20-5.40); RED CELL DISTRIBUTION WIDTH 12.9 % (12.0-15.0); WHITE BLOOD COUNT 5.3 x10^3/uL (4.8-10.8)
[2024-04-24 12:24] LABS: BUN - BLOOD UREA NITROGEN 8 mg/dL (6-20); CALCIUM 9.9 mg/dL (8.5-10.3); CARBON DIOXIDE - CO2 31 mmol/L (21-32); CHLORIDE 99 mmol/L (101-111); CHOL/HDL RATIO 2.1 (<4.4); CHOLESTEROL 201 mg/dL; CREATININE 0.6 mg/dL (0.6-1.3); GFR - MDRD 97 (>89); GLUCOSE 106 mg/dL (74-104); HDL CHOLESTEROL 97 mg/dL; LDL CHOLESTEROL,CALCULATED 93 mg/dL; POTASSIUM 4.5 mmol/L (3.5-4.5); SODIUM 135 mmol/L (135-145); TRIGLYCERIDES 55 mg/dL; VLDL CHOLESTEROL 11 mg/dL
== END 2024-04-24 07:18 | disposition home or self-care (01) ==
LOC: LAB.N 07:17
PROVIDERS: ATTEND Internal Medicine Cardiovascular Disease
DX: I70.90 Unspecified atherosclerosis (principal)
CPT/HCPCS: 36415; 80048; 80061; 83721; 85025; 85027